=== PATIENT | female | born 1955 | race Caucasian/White ===

== ENCOUNTER 2019-09-26 13:19 | Emergency (ER) | payer OTHER, SELFPAY ==
--- NOTE | 2019-09-26 13:30 | ED.NECK ---
HPI - Neck Pain/Injury General Chief Complaint: Neck Pain/Injury Stated Complaint: NECK PAIN Source: patient and RN notes reviewed Mode of arrival: ambulatory Limitations: no limitations History of Present Illness HPI Narrative: The patient, a left-handed non-smoker/nondrinker, presents with a left upper shoulder and neck pain. She has nearly a 2-week history of left neck and shoulder pain that radiates to her lateral forearm/ elbow and shoulder. She attributes onset to overuse, increased activity at that time then; no URI, fever, loss of taste/smell, gait changes, injury, weakness, specific hand lateralization, speech?visual changes, lateralizing weakness. Symptoms are mild, associated with some mild numbness, worse with activity, better at rest, and only minimally improved with alternating heat & ice and OTC preparations Related Data Home Medications Medication Instructions Recorded Confirmed biotin 800 mcg tablet 800 mcg PO DAILY 06/03/19 06/03/19 diphenhydramine HCl 25 mg tablet 25 mg PO ONCE PRN tablet 06/03/19 06/03/19 lactobacillus combination no.8 3 3,000 mmu cells PO DAILY 06/03/19 06/03/19 billion cell capsule multivitamin 1 tablet PO DAILY 06/03/19 06/03/19 omega-3 fatty acids 1,000 mg 1,000 mg PO DAILY 06/03/19 06/03/19 capsule Allergies Allergy/AdvReac Type Severity Reaction Status Date / Time amoxicillin Allergy Unknown Itching Verified 09/26/19 13:42 cephalexin Allergy Unknown Itching Verified 09/26/19 13:42 ciprofloxacin Allergy Unknown Itching Verified 09/26/19 13:42 Penicillins Allergy Unknown Itching Verified 09/26/19 13:42 Sulfa (Sulfonamide Allergy Unknown Itching Verified 09/26/19 13:42 Antibiotics) Soy Protein Allergy Unknown Unknown Uncoded 09/26/19 13:42 Review of Systems Review of Systems: Narrative: General/Constitutional: No weight loss,fever Eyes: N0: Redness,discharge Ears/Nose/Throat: No: Epistaxis,ear discharge Respiratory: Denies: Hemoptysis Gastrointestinal: No Vomiting, Bleeding-rectal Skin: No Lumps, eruption Neurologic: No Focal Weakness,Sz Hematologic: Denies: Petechiae/Purpura Psychiatric: No: Suicida ideationl All Other Systems: Reviewed and Negative [facility] Past Medical History Medical History (Updated 09/26/19 @ 14:02 by Edmundo Kerr MD) Postmenopausal Family History Family History (Updated 05/24/16 @ 13:48 by DOCTOR UNKNOWN) Father Diabetes mellitus Cerebrovascular accident Family history of congestive heart failure Sibling Cerebrovascular accident Mother Family history of malignant neoplasm of breast in first degree relative Social History Social History Smoking status: Never smoker Second hand tobacco smoke exposure: No Alcohol intake: current Comments At time of signature, agree with nursing past medical, surgical, social and family history. There is no relevant family history pertinent to the presenting complaint Exam Narrative: Exam Narrative: General Appearance: Well appearing, Well nourished EYE: PERRLA, Conjunctiva clear Ears: External ear normal Nose: Normal nose Mouth/Throat: Normal appearing, Normal lips Neck: Supple Respiratory: Airway patent Abdomen: Soft Musculoskeletal: Normal strength, 5/5 : Bi/Tri-cepts, no foot drop Spine/Back: Paraspinal muscle tender (with mild decreased range of motion; left supraspinatus tenderness Skin: Normal color Neurological: A&O x3, CN II-XII intact, Psychiatric: Normal mood Course Vital Signs Vital signs: Vital Signs Temperature 96.9 F L 09/26/19 13:37 Pulse Rate 70 09/26/19 13:37 Respiratory Rate 20 09/26/19 13:37 Blood Pressure 130/65 09/26/19 13:37 Pulse Oximetry 99 09/26/19 13:37 Temperature 96.9 F L 09/26/19 13:37 Pulse Rate 70 09/26/19 13:37 Respiratory Rate 20 09/26/19 13:37 Blood Pressure 130/65 09/26/19 13:37 Pulse Oximetry 99 09/26/19 13:37 Discharge Plan Discharge Clinical Impression: Cervica
[2019-09-26 13:37] VITALS: BP 130/65; PULSE 70; RESP 20; TEMP 36.1; O2SAT 99
== END 2019-09-26 14:10 | disposition home or self-care (01) ==
PROVIDERS: Emergency Provider Emergency Medicine; PCP Internal Medicine
DX: M54.2 Cervicalgia (principal); I10 Essential (primary) hypertension; E11.9 Type 2 diabetes mellitus without complications
CPT/HCPCS: 99213; G0463

== ENCOUNTER 2022-05-27 08:45 | Outpatient (CLI) | payer MEDICARE, SELFPAY ==
[2022-05-27 19:57] LABS: Iron 72 ug/dL (37-170)
[2022-05-27 21:17] LABS: Percent Iron Saturation 23 % (20-50)
== END 2022-05-27 08:46 | disposition home or self-care (01) ==
LOC: ANHGOSHLAB 08:47
PROVIDERS: Visit Provider Internal Medicine Gastroenterology
DX: R77.8 Other specified abnormalities of plasma proteins (principal); R74.01 Elevation of levels of liver transaminase levels
CPT/HCPCS: 36415; 81256; 82728; 83540; 83550

== ENCOUNTER → 2022-05-27 08:56 | Outpatient (CLI) | payer MEDICARE, SELFPAY ==
--- NOTE | ~2022-05-27 | US_ITS ---
EXAMINATION: US right upper quadrant DATE: 05/27/2022 09:20 INDICATION: Elevated liver enzymes TECHNIQUE: Multiple grayscale and Doppler ultrasound images of the abdomen were obtained. COMPARISON: 08/08/2016 FINDINGS: The head and body of the pancreas are normal. The pancreatic tail is obscured by bowel gas. Cysts of the liver measure up to 2.6 cm. There is a 3.7 cm hypoechoic lesion of the left hepatic lob e with posterior acoustic enhancement. No surface nodularity. Normal hepatopetal flow in the main por madyson vein. There is a stone in the nondistended gallbladder. No gallbladder wall thickening or pericho lecystic fluid. The normal common bile duct measures 4 mm. There was no sonographic Nye sign. IMPRESSION: 1. Normal sonographic study of the gallbladder. 2. Indeterminate lesion of the left hepatic lobe. Recommend further evaluation by CT or MRI without a nd with contrast. Reviewed, dictated and finalized at location B. IMPRESSION: 1. Normal sonographic study of the gallbladder. 2. Indeterminate lesion of the left hepatic lobe. Recommend further evaluation by CT or MRI without and with contrast.
== END ==
PROVIDERS: PCP Internal Medicine; Visit Provider Internal Medicine Gastroenterology
DX: R74.8 Abnormal levels of other serum enzymes (principal)
CPT/HCPCS: 76705

== ENCOUNTER 2024-07-25 16:19 | Emergency (ER) | payer MEDICARE, SELFPAY ==
--- NOTE | 2024-07-25 16:22 | ED.URI ---
HPI - URI/Sore Throat General Chief Complaint: Upper Respiratory Infection Stated Complaint: cold symptoms Time Seen by Provider: 07/25/24 16:38 Source: patient, RN notes reviewed and old records reviewed Mode of arrival: ambulatory Limitations: no limitations History of Present Illness HPI Narrative: 69-year-old female presents to the [facility] with at least 1 week of cold symptoms, sinus congestion, ear pressure and cough. Reports scratchy throat. Did at home COVID test which she was reports is negative. Related Data Allergies Allergy/AdvReac Type Severity Reaction Status Date / Time amoxicillin Allergy Unknown Itching Verified 07/25/24 16:31 cephalexin Allergy Unknown Itching Verified 07/25/24 16:31 ciprofloxacin Allergy Unknown Itching Verified 07/25/24 16:31 Penicillins Allergy Unknown Itching Verified 07/25/24 16:31 Sulfa (Sulfonamide Allergy Unknown Itching Verified 07/25/24 16:31 Antibiotics) tramadol AdvReac Intermediate Chest Verified 07/25/24 16:31 pressure/indigestion Soy Protein Allergy Unknown Unknown Uncoded 07/25/24 16:31 Review of Systems Review of Systems: All systems reviewed & are unremarkable except as noted in HPI and below Constitutional: Constitutional: Reports no additional constitutional complaints ENT: Reports as per HPI Cardiovascular: Cardiovascular: Reports no additional cardiovascular complaints, Denies chest pain and Denies dyspnea Respiratory: Respiratory: Reports as per HPI, Denies chest congestion, Reports cough and Denies dyspnea Musculoskeletal: Musculoskeletal: Reports no additional musculoskeletal complaints Integumentary/Breasts: Skin/Breast: Reports system reviewed and no additional complaints, except as docu PMFSH Past Medical History Medical History Postmenopausal Family History Family History Father Diabetes mellitus Cerebrovascular accident Family history of congestive heart failure Sibling Cerebrovascular accident Mother Family history of malignant neoplasm of breast in first degree relative Social History Social History Smoking status: Never smoker Second hand tobacco smoke exposure: No Alcohol intake: current Comments At the time of my signature, I reviewed and agree with the nursing past medical, surgical, social, and family history. There is no relevant family history pertinent to the patient complaint. Exam Const: General: cooperative, healthy appearing, comfortable, no acute distress, well developed, alert and well nourished Nutritional Appearance: well nourished Orientation/consciousness: patient oriented x3 Limitations: no limitations HENMT: Head: normal to inspection Ears: hearing grossly normal bilaterally, external ears normal, TM's normal bilaterally, EAC's normal, mastoids normal and no periauricular adenopathy Face/Nose/Sinus: Normal external nose present, face symmetric and sinus tenderness Mouth: Yes Normal oral and palatal mucosa present, Yes lip normal, Yes tongue normal and Yes moist mucous membranes Throat: posterior oropharynx normal, uvula midline, postnasal drainage and no uvular edema Eyes: General: appearance normal, both eyes and all related structures Alignment and Position: alignment normal Neck: Neck: normal visual inspection, full ROM, no lymphadenopathy and no meningeal signs Chest: Chest palpation & inspection: normal inspection of the chest Resp: Effort & Inspection: normal respiratory effort and able to speak in complete sentences Auscultation: clear to auscultation bilaterally, no crackles, no rales, no rhonchi and no wheezes Cardio: Rate: regular rate Skin: General skin exam: normal color and no rashes or lesions noted Neuro: General: patient oriented x3, gait normal, moves all extremities and no meningeal signs Cognition (Neuro): normal cognition Speech: normal speech Gait exam (Neuro): Normal gait present Extrem: General: normal to inspection, full ROM, capillary refill normal and normal gait Psych: Appearance: grossly normal and well kempt Mental Status: mental status grossly normal Speech and movement: Normal speech and movement present and Clear speech present Affect: normal affect Attitude: cooperative Course Course Level of Care: Express Care Visit Vital Signs Vital signs: Vital Signs Temperature 97.4 F L 07/25/24 16:30 Pulse Rate 94 07/25/24 16:30 Respiratory Rate 16 07/25/24 16:30 Blood Pressure 125/80 07/25/24 16:30 Pulse Oximetry 98 07/25/24 16:30 Temperature 97.4 F L 07/25/24 16:30 Pulse Rate 94 07/25/24 16:30 Respiratory Rate 16 07/25/24 16:30 Blood Pressure 125/80 07/25/24 16:30 Pulse Oximetry 98 07/25/24 16:30 Reviewed MDM - URI/Sore Throat MDM Narrative Medical decision making narrative: Patient sitting in exam room. Patient is nontoxic, vitals are stable. Patient presents with at least 1 week of URI symptoms. No acute findings noted on exam. Patient is appropriate for outpatient treatment with close follow-up possible secondary bacterial infection, covering with doxycycline due to patient's multiple allergies. Discharge instructions reviewed with patient, as well as provided in writing per nursing staff. The instructions also include specific and strict return/GO TO THE ER as well as f/u information. All questions have been answered, and the patient deny any further questions with discharge and discharge plan. Some parts of this dictation were generated by voice recognition software and may contain typographical and/or grammatical inaccuracies. Differential Diagnosis Differential diagnosis: Likely upper respiratory infection, otitis media, sinusitis, viral infection, bronchitis, influenza and pharyngitis Critical Care Time Critical Care Time Critical Care Time: No Discharge Plan Discharge Clinical Impression: Sinusitis, Bronchitis Patient Disposition: Home Condition: Stable Instructions: Antibiotic Form, Sinusitis (ED) Additional Instructions: It is very important to treat your symptoms. Drink plenty of water, Gatorade, Pedialyte, ice pops or Jell-O. -Alternate Tylenol and Motrin per package directions for fever or pain. You can alternate every 4 hours -Antihistamine medication such as Zyrtec/Claritin/Karyn during the day can help improve symptoms. -doing daily nasal irrigations can help relieve pressure your sinuses. Things like a Neti pot -Use Flonase daily to help reduce the inflammation and dry up your sinuses. -You can also use Coricidin HBP. Be sure to drink plenty of water with this medication at least 8 ounces with every dose and it is important to drink 8 to 10 glasses of water per day. Water is a natural decongestant -Eat and drink things that are easy to swallow, like tea or soup, or popsicles. -Oral rinses such as: Salt water gargles and/or may use topical anesthetic (eg. Chloraseptic spray) or lozenges to relieve dryness or throat pain). -Frequent hand washing or hand cross tie cutter is one of the best ways to prevent spread of infection. -Using a vaporizer or humidifier at night will also help thin secretions and help with coughing up phlegm. -Follow up with primary care provider in 7-10 days if condition is not improving - For new or worsening symptoms go directly to the nearest ER Patient Language: Cymro Prescriptions: New doxycycline monohydrate 100 mg tablet 100 mg PO BID Qty: 14 0RF No Action potassium chloride 20 mEq tablet extended release 30 meq PO DAILY Qty: 135 1RF Rx Instructions: Take 1.5 tablet by oral route every day with food. metoprolol tartrate 50 mg tablet See Rx Instructions .ROUTE .COMPLEX Qty: 180 1RF Dose Instruction: TAKE ONE TABLET BY MOUTH TWICE A DAY Rx Instructions: TAKE ONE TABLET BY MOUTH TWICE A DAY hydrochlorothiazide 12.5 mg tablet See Rx Instructions .ROUTE .COMPLEX Qty: 90 1RF Dose Instruction: TAKE ONE TABLET BY MOUTH ONCE DAILY Rx Instructions: TAKE ONE TABLET BY MOUTH ONCE DAILY nifedipine 30 mg tablet extended release 30 mg PO DAILY Qty: 90 1RF Follow-up/Referrals: Vince,MD Joseph [Primary Care Provider] - 2 Weeks ([facility] care follow [facility] ) Time of Disposition: 16:45
[2024-07-25 16:30] VITALS: BP 125/80; PULSE 94; RESP 16; TEMP 36.3; O2SAT 98
== END 2024-07-25 16:50 | disposition home or self-care (01) ==
PROVIDERS: Emergency Provider Nurse Practitioner; PCP Internal Medicine
DX: J32.9 Chronic sinusitis, unspecified (principal); J40 Bronchitis, not specified as acute or chronic
CPT/HCPCS: 99213; G0463